=== PATIENT | female | born 1995 | race Caucasian/White ===

== ENCOUNTER 2020-04-03 16:10 | Emergency (ER) | payer OTHER ==
[~2020-04-03] VITALS: Ht 157.5 cm; Wt 81.7 kg
[~2020-04-03 16:10] MED LIST: ABILIFY15 MG PO; ANUSOL-HC30 GM RC; BACTROBAN CREAM30 G1 TOP; COLACE100 MG PO; INJECTION; KEFLEX500 MG PO; LUTERA1 EACH PO; MULTIVITAMINS1 EAC7 PO; PREDNISONE 20 M20 M1 PO; PROZAC 20 MG20 M1; SEROQUEL 25 MG25 M1; WELLBUTRIN SR200 MG; ZOLOFT 50 MG TA50 M1 PO
[2020-04-03 16:27] LABS: URINE BILIRUBIN NEGATIVE (Negative); URINE BLOOD 3+ (Negative); URINE CLARITY SL CLOUDY; URINE COLOR YELLOW; URINE GLUCOSE-RANDOM NEGATIVE (Negative); URINE KETONES NEGATIVE (Negative); URINE LEUKOCYTES-REFLEX 1+ (Negative); URINE PROTEIN 2+ (Negative); URINE SPECIFIC GRAVITY 1.025 (1.005-1.030); URINE UROBILINOGEN 0.2 E.U./dl (0.2-1.0)
[2020-04-03 16:29] LABS: URINE NITRITE-REFLEX POSITIVE (Negative)
[2020-04-03 16:35] LABS: SQUAMOUS >10 Many /LPF (0-3)
[2020-04-03 16:38] LABS: BACTERIA-REFLEX >30 Many /HPF (None Seen); MUCUS 4-6 Moderate strn/LPF (None Seen); URINE WBC-REFLEX 6-15 Few /HPF (0-5)
[2020-04-03 16:39] LABS: CRYSTALS None Seen /LPF (None Seen); HYALINE CASTS 0-3 Few /LPF (None Seen)
[2020-04-03] MEDS ORDERED: KEFLEX500 M1 PO (16:42)
[2020-04-03] MEDS ORDERED: PYRIDIUM100 M1 PO (16:43)
[2020-04-03] MEDS ORDERED: ONDANSETRON HCL4 M2 PO (16:43)
[2020-04-03 16:59] VITALS: BP 123/66
== END 2020-04-03 17:00 | disposition home or self-care (01) ==
LOC: M.ERS 16:10
PROVIDERS: Nurse Practitioner Family
DX: N39.0 Urinary tract infection, site not specified (principal)

== ENCOUNTER 2020-08-31 14:17 | Emergency (ER) | payer OTHER ==
[~2020-08-31] VITALS: Ht 157.5 cm; Wt 86.2 kg
[~2020-08-31 14:17] MED LIST changes: +KEFLEX500 M1 PO; +ONDANSETRON HCL4 M2 PO; +PYRIDIUM100 M1 PO
[2020-08-31] MEDS ORDERED: ADIPEX-P37.5 MG PO (14:26)
[2020-08-31 15:10] LABS: INFLUENZA A ANTIGEN Negative (Negative); INFLUENZA B ANTIGEN Negative (Negative)
[2020-08-31] MEDS ORDERED: CIPROFLOXIN HC2.5 M1 OPHTHALMIC (16:20)
[2020-08-31 16:39] VITALS: BP 121/72
== END 2020-08-31 16:40 | disposition home or self-care (01) ==
LOC: M.ERS 14:17
PROVIDERS: Nurse Practitioner Family
DX: H10.9 Unspecified conjunctivitis (principal); Z20.828 Contact with and (suspected) exposure to other viral communicable diseases